=== PATIENT | male | born 1955 | race Caucasian/White ===

== ENCOUNTER 2020-09-02 13:46 | Day surgery (SDC) | payer BC ==
[~2020-09-02] VITALS: Ht 188 cm; Wt 115.8 kg
[~2020-09-02 13:46] MED LIST: ASPI325; ATOR20; METPHE10; MIRT15; Prozac20 MG
--- NOTE | 2020-09-02 14:59 | NUR ---
09/02/20 1459 Natalie Tovar LATE ENTRY: PT REQUESTED NURSE SEDATION AND NOT ANESTHESIA DUE TO COST VARIANCE. PT DOES NOT WEAR CPAP BUT DOES HAVE A DIAGNOSIS OF SLEEP APNEA. CARLA TOVAR FELT HIS AIRWAY WAS OPEN ENOUGH TO PROCEED WITH NURSE SEDATION AND NOT ANESTHESIA.
== END 2020-09-02 15:36 | disposition home or self-care (01) ==
LOC: ORSCSDS 13:46
PROVIDERS: Internal Medicine Gastroenterology
PROC: 0DBL8ZX Excision of Transverse Colon, Via Natural or Artificial Opening Endoscopic, Diagnostic (ICD-10-PCS; principal; 2020-09-02 14:45)
DX: Z12.11 Encounter for screening for malignant neoplasm of colon (principal); Z86.010 Personal history of colon polyps; D12.3 Benign neoplasm of transverse colon; K57.30 Diverticulosis of large intestine without perforation or abscess without bleeding; Z80.0 Family history of malignant neoplasm of digestive organs; Z79.82 Long term (current) use of aspirin; Z79.899 Other long term (current) drug therapy
CPT/HCPCS: 88305; J2405; J2704; J7120